=== PATIENT | female | born 1940 | race Caucasian/White ===

== ENCOUNTER → 2020-02-29 10:18 | Outpatient (CLI) | payer MEDICARE, BC, SELFPAY ==
[2020-02-29 13:05] LABS: Add Manual Diff / Slide Review NO; Basophils Absolute Auto 100 /uL (0-100); Basophils Percent Auto 1.1 % (0-2); Eosinophils Absolute Auto 100 /uL (0-450); Eosinophils Percent Auto 2.1 % (2-4); Hematocrit 45.5 % (36-46); Lymphocytes Absolute Auto 1700 /uL (1100-4500); Lymphocytes Percent Auto 28.9 % (25-40); Mean Corpuscular HGB Conc 33.1 % (30-36); Mean Corpuscular Hemoglobin 30.2 PG (26-34); Mean Corpuscular Volume 91.3 fL (80-100); Monocytes Absolute Auto 400 /uL (0-900); Monocytes Percent Auto 7.8 % (3-14); Neutrophils Absolute Auto 3400 /uL (1500-7000); Neutrophils Percent Auto 60.1 % (50-75); Platelet Count 240 X10^3/uL (150-400); Red Blood Cell Count 4.98 X10^6/uL (4.0-5.2); Red Cell Distribution Width 13.9 % (11.6-14.8); White Blood Cell Count 5.7 X10^3/uL (4.5-11.0)
[2020-02-29 13:27] LABS: Alanine Aminotransferase 16 IU/L (<35); Albumin 4.3 g/dL (3.5-5.0); Albumin Globulin Ratio 1.4 (1.0-2.8); Alkaline Phosphatase 82 U/L (38-126); Aspartate Aminotransferase 26 IU/L (14-36); BUN Creatinine Ratio 18.8 (6-22); Bilirubin Total 0.8 mg/dL (0.2-1.3); Blood Urea Nitrogen 16 mg/dL (7-17); Calcium 9.5 mg/dL (8.4-10.2); Carbon Dioxide 31 mmol/L (22-32); Chloride 105 mmol/L (98-107); Cholesterol 177 mg/dL (140-199); Estimated Glomerular Filt Rate > 60.0 mL/min (>60); Glucose 83 mg/dL (80-110); HDL Cholesterol 46 mg/dL (40-60); HEMOLYSIS < 15 (0-50); LDL Cholesterol Calculated 99 mg/dL (<100); Potassium 4.3 mmol/L (3.4-5.1); Sodium 141 mmol/L (137-145); Total Protein 7.3 g/dL (6.3-8.2); Triglycerides 161 mg/dL (35-150)
[2020-02-29 13:57] LABS: Thyroid Stimulating Hormone 2.55 uIU/mL (0.47-4.68)
== END ==
PROVIDERS: Family Provider Family Medicine; PCP Family Medicine; Referring Provider Family Medicine; Visit Provider Family Medicine
DX: M85.80 Other specified disorders of bone density and structure, unspecified site (principal); Z13.220 Encounter for screening for lipoid disorders; Z13.29 Encounter for screening for other suspected endocrine disorder; Z13.6 Encounter for screening for cardiovascular disorders
CPT/HCPCS: 36415; 80053; 80061; 84443; 85025

== ENCOUNTER → 2020-04-21 10:15 | Outpatient (CLI) | payer MEDICARE, BC, SELFPAY ==
--- NOTE | 2020-04-21 10:18 | DI.MG.S_ITS ---
BILATERAL DIGITAL SCREENING MAMMOGRAM 3D/2D WITH CAD: 04/21/2020 CLINICAL: Routine screening. Comparison is made to exams dated: 12/17/2014 mammogram - [facility], 09/15/2009 mammogram, and 02/20/2008 mammogram - [facility]. The tissue of both breasts is predominantly fatty. Current study was also evaluated with a Computer Aided Detection (CAD) system. No significant masses, calcifications, or other findings are seen in either breast. There has been no significant interval change. IMPRESSION: NEGATIVE There is no mammographic evidence of malignancy. A 1 year screening mammogram is recommended. This exam was interpreted at Station ID: [id number]. NOTE: For mammograms, a report in lay terms will be sent to the patient. Approximately 15% of breast malignancies will not be visualized mammographically. In the management of a palpable breast mass, a negative mammogram must not discourage biopsy of a clinically suspicious lesion. Electronically Signed By: Graciela laguerre/deandre:04/21/2020 11:45:31 letter sent: Normal Exam ACR BI-RADS Category 1: Negative [id number]
== END ==
PROVIDERS: Family Provider Family Medicine; PCP Family Medicine; Referring Provider Family Medicine; Visit Provider Family Medicine
DX: Z12.31 Encounter for screening mammogram for malignant neoplasm of breast (principal)
CPT/HCPCS: 77063; 77067

== ENCOUNTER → 2020-04-26 14:48 | Outpatient (CLI) | payer MEDICARE, BC, SELFPAY | PROVIDERS: Family Provider Family Medicine; PCP Family Medicine; Referring Provider Family Medicine; Visit Provider Family Medicine | DX: M81.0 Age-related osteoporosis without current pathological fracture (principal); Z78.0 Asymptomatic menopausal state; Z82.62 Family history of osteoporosis | CPT/HCPCS: 77080 ==

== ENCOUNTER → 2021-06-05 09:48 | Outpatient (CLI) | payer MEDICARE, BC, SELFPAY ==
--- NOTE | 2021-06-05 09:50 | DI.RAD.S_ITS ---
PROCEDURE: XR DEXA AXIAL SKELETON INDICATIONS: osteopenia COMPARISON: [facility], CR, XR DEXA AXIAL SKELETON, 04/26/2020, 15:06. FINDINGS: This blank DEXA report has been sent in error by the PACS system. The correct and complete report will be forthcoming in 1-2 days. Thank you for your patience and understanding. Dictated by: Colleen Paul MD, PhD on 06/05/2021 at 16:25 Approved by: Colleen Paul MD, PhD on 06/05/2021 at 16:25
== END ==
PROVIDERS: Family Provider Family Medicine; PCP Internal Medicine; Referring Provider Internal Medicine; Visit Provider Internal Medicine
DX: M81.0 Age-related osteoporosis without current pathological fracture (principal); Z78.0 Asymptomatic menopausal state; Z82.62 Family history of osteoporosis
CPT/HCPCS: 77080

== ENCOUNTER → 2021-09-29 11:23 | Outpatient (CLI) | payer MEDICARE, BC, SELFPAY ==
[2021-09-29 12:16] LABS: Alanine Aminotransferase 18 IU/L (<35); Albumin 4.5 g/dL (3.5-5.0); Albumin Globulin Ratio 1.5 (1.0-2.8); Alkaline Phosphatase 78 U/L (38-126); Aspartate Aminotransferase 27 IU/L (14-36); BUN Creatinine Ratio 18.6 (6-22); Bilirubin Total 0.8 mg/dL (0.2-1.3); Blood Urea Nitrogen 16 mg/dL (7-17); Calcium 9.3 mg/dL (8.4-10.2); Carbon Dioxide 31 mmol/L (22-32); Chloride 104 mmol/L (98-107); Cholesterol 191 mg/dL (140-199); Estimated Glomerular Filt Rate > 60 mL/min (>60); Glucose 97 mg/dL (80-110); HDL Cholesterol 52 mg/dL (40-60); HEMOLYSIS < 15 (0-50); LDL Cholesterol Calculated 106 mg/dL (<100); Potassium 4.3 mmol/L (3.4-5.1); Sodium 140 mmol/L (137-145); Total Protein 7.5 g/dL (6.3-8.2); Triglycerides 164 mg/dL (35-150)
== END ==
PROVIDERS: Family Provider Family Medicine; PCP Internal Medicine; Referring Provider Internal Medicine; Visit Provider Internal Medicine
DX: Z13.6 Encounter for screening for cardiovascular disorders (principal); Z13.220 Encounter for screening for lipoid disorders
CPT/HCPCS: 36415; 80053; 80061

== ENCOUNTER → 2022-06-12 12:02 | Outpatient (CLI) | payer MEDICARE, BC, SELFPAY ==
[2022-06-12 12:56] LABS: Add Manual Diff / Slide Review NO; Basophils Absolute Auto 100 /uL (0-100); Eosinophils Absolute Auto 100 /uL (0-450); Eosinophils Percent Auto 1.4 % (2-4); Hematocrit 45.1 % (36-46); Hemoglobin 15.1 g/dL (12.0-16.0); Lymphocytes Absolute Auto 1500 /uL (1100-4500); Mean Corpuscular HGB Conc 33.4 % (30-36); Mean Corpuscular Hemoglobin 30.3 PG (26-34); Mean Corpuscular Volume 90.7 fL (80-100); Monocytes Absolute Auto 500 /uL (0-900); Monocytes Percent Auto 7.8 % (3-14); Neutrophils Absolute Auto 4400 /uL (1500-7000); Neutrophils Percent Auto 66.8 % (50-75); Platelet Count 224 X10^3/uL (150-400); Red Blood Cell Count 4.97 X10^6/uL (4.0-5.2); Red Cell Distribution Width 14.1 % (11.6-14.8); White Blood Cell Count 6.6 X10^3/uL (4.5-11.0)
[2022-06-12 13:37] LABS: Alanine Aminotransferase 20 IU/L (<35); Albumin 4.5 g/dL (3.5-5.0); Albumin Globulin Ratio 1.4 (1.0-2.8); Alkaline Phosphatase 76 U/L (38-126); Aspartate Aminotransferase 25 IU/L (14-36); Bilirubin Total 0.8 mg/dL (0.2-1.3); Blood Urea Nitrogen 24 mg/dL (7-17); Calcium 9.4 mg/dL (8.4-10.2); Carbon Dioxide 29 mmol/L (22-32); Chloride 100 mmol/L (98-107); Estimated Glomerular Filt Rate > 60 mL/min (>60); Globulin 3.2 g/dL (1.7-4.1); Glucose 80 mg/dL (80-110); HEMOLYSIS < 15 (0-50); Sodium 139 mmol/L (137-145); Total Protein 7.7 g/dL (6.3-8.2)
[2022-06-12 13:47] LABS: Free T4, Direct Thyroxine 1.17 ng/dL (0.78-2.19)
[2022-06-12 14:01] LABS: Thyroid Stimulating Hormone 1.87 uIU/mL (0.47-4.68)
== END ==
PROVIDERS: Family Provider Internal Medicine; PCP Internal Medicine; Referring Provider Internal Medicine; Visit Provider Internal Medicine
DX: L65.9 Nonscarring hair loss, unspecified (principal); R53.83 Other fatigue; C32.9 Malignant neoplasm of larynx, unspecified
CPT/HCPCS: 36415; 80053; 84439; 84443; 85025

== ENCOUNTER 2022-08-02 10:30 | Outpatient (RCR) | payer MEDICARE, BC, SELFPAY ==
--- NOTE | 2022-04-25 12:00 | ST.OPIE ---
Visit Care Team Role Provider Type Too Burgos MD Family Provider Physician Primary Care Provider Specialty: Internal Medicine Address: [address] [place] [address], [address], [place], [address] Email: [email or web address] Lobo Ramirez MD Attending Provider Non-Staff Referring Provider Specialty: Ear, Nose, Throat Address: [address] [place] [address], [id number] Email: Speech-Language Pathology Initial Evaluation CLINICIAN ONCOLOGY Voice Resonance Evaluation Start: 04/25/22 11:19 Freq: Status: Active Protocol: Document 04/25/22 11:19 LNK (Rec: 04/25/22 12:00 LNK [id number]) Voice and Resonance Assessment Session Time Visit Start Time 09:30 Visit Stop Time 10:30 Total Visit Minutes 60 Visit Information Visit Number 1 Plan of Care Dates 04/25/22-07/24/22 Next Note Type Next Note Type Treatment Note Referral Referring Physician Dr Ramirez, ENT Reason for Referral dysphonia Setting Setting Outpatient Care Patient History Patient History Pt was seen for a voice evaluation 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 She subsequently underwent radiation treatment (28 treatments) from December [address] Ramirez recently evaluated the pt's vocal folds following her treatment. He observed to left vocal fold to have scar tissue, moderately decreased mucosal wave and moderately to severely decreased glottic closure. Pt presented with a significantly breathy/aphonic vocal quality with some phonation. She is seeking vocal therapy to get her voice back to normal and be able to sing again. Educational Status Education Level College Oral Motor Assessment Source: [employer] ([employer]). Oral-Motor Eval Completed No Oral-Motor Assessment Informal observation indicated structures and function to be WNL Subjective Subjective Pt is a pleasant woman who was well prepared with information related to her surgery - Laryngeal Performance Maximum Phonation Time MPT Norms: Women (15-25) Men (25-35) Loudness (50-60 dB); Speaking Rate: Oral Reading of Sentences (190 Words Per Minute); Oral Reading of Paragraphs (160-170 WPM); Speaking Rate in Conversation (150-250 WPM) Maximum Phonation Time 11.5 Maximum Phonation Time Reduced Jitter/Shimmer Norms: Jitter (Less than or equal to 1.040% - Frequency) Norms: Shimmer (Less than or equal to 3.810% - Amplitude) Jitter 7.79 Shimmer 13.12 Pitch [place] Pitch [place] Pitch Breaks,Reduced Range, Cessation of Voicing Muscle Tension Assessment Muscle Tension Assessment Neck,Shoulders Muscle Tension Assessment Comments Pt noted that her neck was stiffer in the front re: radiation tx Tongue Base Tension Tongue Base Tension w/ Voicing No Tongue Base Tension at Rest No Breath Support Breath Support At Rest Abdominal Breath Support Sustained Phonation Abdominal Breath Support Conversation Abdominal Breath Support Conversation Comment Increased respiratory rate re: breathiness Speaks on Room Air Yes Postural Alignment Stance Balanced Voice Pitch Range Norms: Women (100-300 Hz) Men (70-250 Hz) Fundamental Frequency Norms: Women (Mean: 225 Hz; Range: 155-334 Hz) Men ( Mean: 128 Hz; Range: 85-196 Hz) Voice Pitch Normal Voice Loudness Moderately Soft/Quiet Voice Phonatory-based Quality Breathy Fundamental Frequency 191 Hz Paradoxical Vocal Fold Movement No Indications Resonance Nasal Resonance Normal Oral Resonance Normal Other Observations Inadequate Breath Support Therapeutic Techniques Other Tactics Vocal adduction exercises Follow exercises from oncologist for maintaining/ increasing ROM and flexibility of head and neck Vocal glides Findings Findings Moderate-Severe Impairment Voice/Resonance Assessment Assessment 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 Vocal adduction exercises as well as pitch change exercises will be utizlized to increase vocal fold strength for vocal adduction and vocal fold flexibility. Myofascial release therapy is recommended , initially with physical therapy, and continued/ maintained by pt. Prognosis Rehabilitation Potential Good - Recommendations Treatment Recommended Yes Treatment Frequency/Duration weekly Therapy Recommendations Myofascial release therapy for head/neck area to reduce/ maintain soft tissue stiffness re: radiation therapy. Recommend PT referral Short Term Goals 1. Pt education of the anatomy/physiology of the laryngeal and neck structures re; pt's surgery and radiation side effects 2. Pt will understand and perform laryngeal exercises as prescribed by ST daily 3. Pt will be referred to PT for myofascial release therapy of head and neck areas affected by Radiation treatments CLINICIAN ONCOLOGY Follow Up weekly as indicated Patient/Caregiver Education Patient/Family Education Described results of evaluation,Patient Understanding,Patient Demonstration,Patient Needs More Info
--- NOTE | 2022-04-25 12:02 | ST.OPPOC ---
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 She subsequently underwent radiation treatment (28 treatments) from December [address] Ramirez recently evaluated the pt's vocal folds following her treatment. He observed to left vocal fold to have scar tissue, moderately decreased mucosal wave and moderately to severely decreased glottic closure. Pt presented with a significantly breathy/aphonic vocal quality with some phonation. She is seeking vocal therapy to get her voice back to normal and be able to sing again. Assessment: Pt presents with moderate to severe dysphaonia characterized by significant breathy vocal quality, reduced loudness and increased respiratory effort when speaking. Vocal adduction exercises as well as pitch change exercises will be utilized to increase vocal fold strength for vocal adduction and vocal fold flexibility. Myofascial release therapy is recommended, initially with physical therapy, and continued/maintained by pt. Recommendations 1. Pt education of the anatomy/physiology of the laryngeal and neck structures re; pt's surgery and radiation side effects 2. Pt will understand and perform laryngeal exercises as prescribed by ST daily 3. Pt will be referred to PT for myofascial release therapy of head and nck areas affected by Radiation treatments Myofascial release therapy for head/neck area to reduce/maintain soft tissue stiffness re: radiation therapy. Recommend PT referral Electronically Signed by: TASHI Sorto 04/25/22 1202 If you are in agreement with this Plan of Care, please return a signed and dated copy. I have reviewed this Plan of Care and certify that the skilled therapy services above are required to meet the patient?s needs. Physician Signature Date Printed Name and Credentials Clinical Instructor Signature Printed Name and Credentials
--- NOTE | 2022-05-03 15:59 | ST.OPTN ---
Visit Care Team Role Provider Type Too Burgos MD Family Provider Physician Primary Care Provider Address: [address] [place] [address], [address], [place], [address] Lobo Ramirez MD Attending Provider Non-Staff Referring Provider Address: [facility] Chloe [address], [address] WAREHOUSE SHIPPING SUPERVISOR Treatment Note WAREHOUSE SHIPPING SUPERVISOR Treatment Note Start: 05/03/22 13:25 Freq: Status: Active Protocol: Document 05/03/22 13:26 LNK (Rec: 05/03/22 13:31 LNK [id number]) Speech Pathology Treatment Note Session Time Visit Start Time 13:30 Visit Stop Time 14:15 Total Visit Minutes 45 Setting Treatment Setting Outpatient Care Visit Type Note Type Treatment Note Next Note Type Next Note Type Treatment Note General Information Patient History Pt was seen for a voice evaluation 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 She subsequently underwent radiation treatment (28 treatments) from December [address] Ramirez recently evaluated the pt's vocal folds following her treatment. He observed to left vocal fold to have scar tissue, moderately decreased mucosal wave and moderately to severely decreased glottic closure. Pt presented with a significantly breathy/aphonic vocal quality with some phonation. She is seeking vocal therapy to get her voice back to normal and be able to sing again. Subjective Identification Type Name,Date of Observations/Patient Presentation Pt presents with moderate to severe dysphaonia characterized by significant breathy vocal quality, reduced loudness and increased respiratory effort when speaking. Vocal adduction exercises as well as pitch change exercises will be utilized to increase vocal fold strength for vocal adduction and vocal fold flexibility. Myofacial release therapy is recommended , initially with physical therapy, and continued/ maintained by pt. Chief Complaint(s) Voice Patient Knowledge/Awareness of WAREHOUSE SHIPPING SUPERVISOR Role Excellent in Treatment Parent/Caretake Knowledge/Awareness of Excellent WAREHOUSE SHIPPING SUPERVISOR Role in Treatment Objective Short Term Goals 1. Pt education of the anatomy/physiology of the laryngeal and neck structures re; pt's surgery and radiation side effects 2. Pt will understand and perform laryngeal exercises as prescribed by ST daily 3. Pt will be referred to PT for myofascial release therapy of head and nck areas affected by Radiation treatments Assisted Goals Pt's vocal quality will improve to [facility] Treatment Activities Vocal exercises described and practiced included: vocal adduction, straw phonation and scales production. All exercises were demonstrated, explained for the pt who imitated and practiced them to satisfaction. Pt noted improved vocal quality with scales and straw phonation. Written explanations of all HEP exercises was provided to the pt. She will be seen every 2 weeks in order to allow for practice between sessions. Assessment Patient Response to Treatment Excellent Rehab Potential Excellent Impairments Identified Voice Reviewed with Patient Goals,Progress Being Made,Home Exercise Program Patient/Caregiver Understanding Excellent Plan Amount of Therapy Recommended 3-4 Months Frequency of Treatment Once a Week Length of Session 45 Minutes Therapeutic Contents Voice Training Provided Patient/Caregiver Instruction Home Exercise Program,Plan of Care Therapy Recommendations Recommended Exercises/ Activities
--- NOTE | 2022-05-17 11:22 | ST.OPTN ---
Visit Care Team Role Provider Type Too Burgos MD Family Provider Physician Primary Care Provider Address: [address] [place] [address], [address], [place], [address] Lobo Ramirez MD Attending Provider Non-Staff Referring Provider Address: [facility] Chloe Wangvirgil [address], [address] RUG SHAMPOOER Treatment Note RUG SHAMPOOER Treatment Note Start: 05/03/22 13:25 Freq: Status: Active Protocol: Document 05/17/22 10:30 LNK (Rec: 05/17/22 11:22 LNK [id number]) Speech Pathology Treatment Note Session Time Visit Start Time 10:30 Visit Stop Time 11:00 Total Visit Minutes 30 Visit Information Visit Number 3 Plan of Care Dates 04/25/22-07/24/22 Setting Treatment Setting Outpatient Care Visit Type Note Type Treatment Note Next Note Type Next Note Type Treatment Note General Information Patient History Pt was seen for a voice evaluation 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 She subsequently underwent radiation treatment (28 treatments) from December [address] Ramirez recently evaluated the pt's vocal folds following her treatment. He observed to left vocal fold to have scar tissue, moderately decreased mucosal wave and moderately to severely decreased glottic closure. Pt presented with a significantly breathy/aphonic vocal quality with some phonation. She is seeking vocal therapy to get her voice back to normal and be able to sing again. 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 Vocal adduction exercises as well as pitch change exercises will be utilized to increase vocal fold strength for vocal adduction and vocal fold flexibility. Myofacial release therapy is recommended , initially with physical therapy, and continued/ maintained by pt. Chief Complaint(s) Voice Patient Knowledge/Awareness of RUG SHAMPOOER Role Excellent in Treatment Parent/Caretake Knowledge/Awareness of Excellent RUG SHAMPOOER Role in Treatment Objective Short Term Goals 1. Pt education of the anatomy/physiology of the laryngealand neck structures re; pt's surgery and radiation side effects 2. Pt will understand and perform laryngeal exercises as prescribed by ST daily 3. Pt will be referred to PT for myofascial release therapy of head and neck areas affected by Radiation treatments Operations Intern Goals Pt's vocal quality will improve to [facility] Treatment Activities Vocal exercises reviewed and practiced included: vocal adduction, straw phonation and scales production. Pt reports that she has been singing at home. Encouraged singing without effort to increase pitch variation and flexibility of the VF. Additionally, pt has increased vocal adduction to 15 sec per rep. pt feel her voice is starting to sound better. All exercises were practiced to RUG SHAMPOOER / patient satisfaction. Pt noted improved vocal quality with scales and straw phonation. Written explanations of all HEP exercises was provided to the pt. She will be seen every 2 weeks in order to allow for practice between sessions. Assessment Patient Response to Treatment Excellent Rehab Potential Excellent Impairments Identified Voice Assessment of Improvement Pt has been dedicated to voice improvement exercised. Encouraged her to get PT referral for myofascial release therapy for neck/ chest area. Reviewed with Patient Goals,Progress Being Made,Home Exercise Program Patient/Caregiver Understanding Excellent Plan Amount of Therapy Recommended 3-4 Months Frequency of Treatment Once a Week Length of Session 45 Minutes Therapeutic Contents Voice Training Provided Patient/Caregiver Instruction Home Exercise Program,Plan of Care Therapy Recommendations Recommended Exercises/ Activities
--- NOTE | 2022-05-31 14:57 | ST.OPTN ---
Visit Care Team Role Provider Type Too Burgos MD Family Provider Physician Primary Care Provider Address: [address] [place] [address], [address], [place], [address] Lobo Ramirez MD Attending Provider Non-Staff Referring Provider Address: [facility] Chloe Wangvirgil [address], [address] [employer]ERRY FARM SUPERVISOR Treatment Note CR[employer]ERRY FARM SUPERVISOR Treatment Note Start: 05/03/22 13:25 Freq: Status: Active Protocol: Document 05/31/22 14:50 LNK (Rec: 05/31/22 14:57 LNK [id number]) Speech Pathology Treatment Note Session Time Visit Start Time 10:30 Visit Stop Time 11:00 Total Visit Minutes 45 Visit Information Visit Number 4 Plan of Care Dates 04/25/22-07/24/22 Setting Treatment Setting Outpatient Care Visit Type Note Type Treatment Note Next Note Type Next Note Type Treatment Note General Information Patient History Pt was seen for a voice evaluation 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 She subsequently underwent radiation treatment (28 treatments) from December [address] Ramirez recently evaluated the pt's vocal folds following her treatment. He observed to left vocal fold to have scar tissue, moderately decreased mucosal wave and moderately to severely decreased glottic closure. Pt presented with a significantly breathy/aphonic vocal quality with some phonation. She is seeking vocal therapy to get her voice back to normal and be able to sing again. 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 Vocal adduction exercises as well as pitch change exercises will be utilized to increase vocal fold strength for vocal adduction and vocal fold flexibility. Myofacial release therapy is recommended , initially with physical therapy, and continued/ maintained by pt. Chief Complaint(s) Voice Patient Knowledge/Awareness of CR[employer] FARM SUPERVISOR Role Excellent in Treatment Parent/Caretake Knowledge/Awareness of Excellent CR[employer] FARM SUPERVISOR Role in Treatment Objective Short Term Goals 1. Pt education of the anatomy/physiology of the laryngeal and neck structures re; pt's surgery and radiation side effects 2. Pt will understand and perform laryngeal exercises as prescribed by ST daily 3. Pt will be referred to PT for myofascial release therapy of head and neck areas affected by Radiation treatments Furnace Caretaker Goals Pt's vocal quality will improve to [facility] Treatment Activities Vocal exercises reviewed and practiced: vocal adduction, and scales production. Pt reported that she did not feel that straw phonation was effective so we eliminated that exercise. Pt has been singing at home. Encouraged singing without effort to increase pitch variation and flexibility of the VF. Additionally, pt has increased vocal adduction to 15 sec per rep. Additionally, pt has increased vocal Pt feel her voice is starting to sound better. All exercise were practiced to CR[employer] FARM SUPERVISOR/ patient satisfaction. Written explanations of all HEP exercises was provided to the pt. She will be seen every 2 weeks in order to allow for practice between sessions. Assessment Patient Response to Treatment Excellent Rehab Potential Excellent Impairments Identified Voice Assessment of Improvement Pt reported that she did not feel that straw phonation was effective so we eliminated that exercise. Pt has been singing at home. Encouraged singing without effort to increase pitch variation and flexibility of the VF. Reviewed with Patient Goals,Progress Being Made,Home Exercise Program Patient/Caregiver Understanding Excellent Plan Amount of Therapy Recommended 3-4 Months Frequency of Treatment Once a Week Length of Session 45 Minutes Therapeutic Contents Voice Training Provided Patient/Caregiver Instruction Home Exercise Program,Plan of Care Therapy Recommendations Recommended Exercises/ Activities
--- NOTE | 2022-06-21 17:06 | ST.OPTN ---
Visit Care Team Role Provider Type Too Burgos MD Family Provider Physician Primary Care Provider Address: [address] [place] [address], [address], [place], [address] Lobo Ramirez MD Attending Provider Non-Staff Referring Provider Address: [facility] Chloe Wangvirgil [address], [address] MANAGER FINANCIAL PLANNING Treatment Note MANAGER FINANCIAL PLANNING Treatment Note Start: 05/03/22 13:25 Freq: Status: Active Protocol: Document 06/21/22 17:01 SARAN (Rec: 06/21/22 17:06 JAYNAK [id number]) Speech Pathology Treatment Note Session Time Visit Start Time 10:30 Visit Stop Time 11:00 Total Visit Minutes 45 Visit Information Visit Number 5 Plan of Care Dates 04/25/22-07/24/22 Setting Treatment Setting Outpatient Care Visit Type Note Type Treatment Note Next Note Type Next Note Type Treatment Note General Information Patient History Pt was seen for a voice evaluation 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 She subsequently underwent radiation treatment (28 treatments) from December [address] Ramirez recently evaluated the pt's vocal folds following her treatment. He observed to left vocal fold to have scar tissue, moderately decreased mucosal wave and moderately to severely decreased glottic closure. Pt presented with a significantly breathy/aphonic vocal quality with some phonation. She is seeking vocal therapy to get her voice back to normal and be able to sing again. 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 Vocal adduction exercises as well as pitch change exercises will be utilized to increase vocal fold strength for vocal adduction and vocal fold flexibility. Myofacial release therapy is recommended , initially with physical therapy, and continued/ maintined by pt. Chief Complaint(s) Voice Patient Knowledge/Awareness of MANAGER FINANCIAL PLANNING Role Excellent in Treatment Parent/Caretake Knowledge/Awareness of Excellent MANAGER FINANCIAL PLANNING Role in Treatment Objective Short Term Goals 1. Pt education of the anatomy/physiology of the laryngealand neck structures re; pt's surgery and radiation side effects 2. Pt will understand and perform laryngeal ecercises as prescribed by ST daily 3. Pt will be referred to PT for myofascial release therapy of head and nck areas affected by Radiation treatments Detention Goals Pt's vocal quality will improve to [facility] Treatment Activities Vocal exercises reviewed and practiced: vocal adduction, and scales production. Pt reported that she has been attending the local [employer] program designed to aid vocally challenges pts to participate in songs and vocal exercises. She has enjoyed the program. Pt continues to present with a hoarse vocal quality. Most of the session was providing pt education re: laryngeal musculature and the continuous churn buttermaker effects of radiation tx on the muscle and cartilage tissues. pt encouraged to continue vocal exercises as well as her physical head/neck exercises she has at home. Assessment Patient Response to Treatment Excellent Rehab Potential Excellent Impairments Identified Voice Reviewed with Patient Goals,Progress Being Made,Home Exercise Program Patient/Caregiver Understanding Excellent Plan Amount of Therapy Recommended 3-4 Months Frequency of Treatment Once a Week Length of Session 45 Minutes Therapeutic Contents Voice Training Provided Patient/Caregiver Instruction Home Exercise Program,Plan of Care Therapy Recommendations Recommended Exercises/ Activities
--- NOTE | 2022-07-12 16:50 | ST.OPTN ---
Visit Care Team Role Provider Type Too Burgos MD Family Provider Physician Primary Care Provider Address: [address] [place] [address], [address], [place], [address] Lobo Ramirez MD Attending Provider Non-Staff Referring Provider Address: [facility] Chloe Woody [address], [address] FEED MILL TENDER Treatment Note FEED MILL TENDER Treatment Note Start: 05/03/22 13:25 Freq: Status: Active Protocol: Document 07/12/22 16:36 (Rec: 07/12/22 16:50 [id number]) Speech Pathology Treatment Note Session Time Visit Start Time 10:30 Visit Stop Time 11:15 Total Visit Minutes 45 Visit Information Visit Number 6 Plan of Care Dates 04/25/22-07/24/22 Setting Treatment Setting Outpatient Care Visit Type Note Type Treatment Note Next Note Type Next Note Type Treatment Note General Information Patient History Pt was seen for a voice evaluation 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 She subsequently underwent radiation treatment (28 treatments) from December [address] Ramirez recently evaluated the pt's vocal folds following her treatment. He observed to left vocal fold to have scar tissue, moderately decreased mucosal wave and moderately to severely decreased glottic closure. Pt presented with a significantly breathy/aphonic vocal quality with some phonation. She is seeking vocal therapy to get her voice back to normal and be able to sing again. Subjective Identification Type Name,Date of Observations/Patient Presentation Pt presents with moderate dysphonia characterized by moderate breathy vocal quality , reduced loundess and some respiratory effort when speaking. Vocal adduction exercises as well as pitch change exercises will be utizlized to increase vocal fold strength for vocal adduction and vocal fold flexibility. Myofacial release therapy is recommended , initially with physical therapy, and continued/ maintined by pt. Chief Complaint(s) Voice Patient Knowledge/Awareness of FEED MILL TENDER Role Excellent in Treatment Parent/Caretake Knowledge/Awareness of Excellent FEED MILL TENDER Role in Treatment Objective Short Term Goals 1. Pt education of the anatomy/physiology of the laryngealand neck structures re; pt's surgery and radiation side effects 2. Pt will understand and perform laryngeal ecercises as prescribed by ST daily 3. Pt will be referred to PT for myofascial release therapy of head and nck areas affected by Radiation treatments Matting Press Tender Goals Pt's vocal quality will improve to [facility] Treatment Activities Vocal exercises reviewed and practiced: vocal adduction, and scales production. Pt reported that she has been attending the local [employer] program designed to aid vocally challenges pts to participate in songs and vocal exercises. She has enjoyed the ptogram. Pt continues to present with [facility] vocal quality. Most of the session was providing pt education re: laryngeal musculature and the terminal gauger effects of radiation tx on the muscle and cartilage tissues. pt encouraged to continue vocal exercises as well as her physical head/neck exercises she has at home. Assessment Patient Response to Treatment Excellent Rehab Potential Excellent Impairments Identified Voice Assessment of Improvement Pt reported attending myofacial release therapy today for the first time where she was presented with neck-stretching exercises. She reported benefitting from manual myofacial release. Pt also reported consistent home practice of vocal exercises from [facility] which included pitch glides, arpeggios, and staccato voice exercises. Pt demonstrated knowledge of anatomical and physiological of vocal structures, breathing , and their effects on voice. Pt demonstrated sustained vowels /a/, /i/, /u/, and /o/, with good pitch maintenance and mild dysphonia characterized by hoarseness and breathiness. Pt reported an increase in vocal quality when supine with her neck turned to either side. Education and practice of warm -up stretches (e.g., shoulder relaxation, jaw stretches, and tongue movements) were introduced. Pt reported that stretching practice from her myofacial therapist were sufficient for now. Pt was also introduced to vocal function exercises for the purposes of increased coordination between breathing and projection. Exercises included sustained vowel /i/, pitch glides to stretch and contract vocal folds, and alternating sustained pitch. Pt reported high similarities between these exercises and stretches with education and practice received at [facility] . Pt reported appreciating the feedback from clinicians that she is doing the right things. Pt chose to maintain [facility] and the stretching program from the myofacial therapist to decrease cognitive and management load and effort. Pt declined SOVT practice due to her busy schedule and self-perceived lack of benefit. Reviewed with Patient Goals,Progress Being Made,Home Exercise Program Patient/Caregiver Understanding Excellent Plan Amount of Therapy Recommended 3-4 Months Frequency of Treatment Once a Week Length of Session 45 Minutes Therapeutic Contents Voice Training Provided Patient/Caregiver Instruction Home Exercise Program,Plan of Care Therapy Recommendations Recommended Exercises/ Activities
--- NOTE | 2022-08-02 11:43 | ST.OPTN ---
Visit Care Team Role Provider Type Too Burgos MD Family Provider Physician Primary Care Provider Address: [address] [place] [address], [address], [address] Lobo Ramirez MD Attending Provider Non-Staff Referring Provider Address: [facility] [place] [address], [address] STRETCHING MACHINE OPERATOR Treatment Note STRETCHING MACHINE OPERATOR Clinical Instructor Line Start: 07/12/22 16:36 Freq: Status: Active Protocol: Document 07/12/22 19:11 LNK (Rec: 07/12/22 19:11 LNK [id number]) Clinical Instructor Signature Clinical Instructor Clinical Instructor Yes STRETCHING MACHINE OPERATOR Treatment Note Start: 05/03/22 13:25 Freq: Status: Active Protocol: Document 08/02/22 11:24 LNK (Rec: 08/02/22 11:42 [facility] [id number]) Speech Pathology Treatment Note Session Time Visit Start Time 10:30 Visit Stop Time 11:15 Total Visit Minutes 45 Visit Information Visit Number 6 Plan of Care Dates 04/25/22-07/24/22 Setting Treatment Setting Outpatient Care Visit Type Note Type Re-Evaluation Next Note Type Next Note Type Treatment Note General Information Patient History Pt was initially seen for a voice evaluation 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 She subsequently underwent radiation treatment (28 treatments) from December [address] Ramirez evaluated the pt's vocal folds following her treatment. He observed the left vocal fold to have scar tissue, moderately decreased mucosal wave and moderately to severely decreased glottic closure. Pt presented with a significantly breathy/aphonic vocal quality with some phonation. She is seeking vocal therapy to get her voice back to normal and be able to sing again. Subjective Identification Type Name,Date of Observations/Patient Presentation Pt initially presented with moderate dysphonia characterized by moderate breathy vocal quality, reduced loundess and some respiratory effort when speaking. Vocal adduction exercises as well as pitch change exercises were recommended be utilized to increase vocal fold strength for vocal adduction and vocal fold flexibility. Myofacial release therapy is recommended , initially with physical therapy, and continued/ maintained by pt. Chief Complaint(s) Voice Patient Knowledge/Awareness of STRETCHING MACHINE OPERATOR Role Excellent in Treatment Parent/Caretake Knowledge/Awareness of Excellent STRETCHING MACHINE OPERATOR Role in Treatment Objective Short Term Goals 1. Pt education of the anatomy/physiology of the laryngeal and neck structures re; pt's surgery and radiation side effects GOAL MET 2. Pt will understand and perform laryngeal exercises as prescribed by ST daily GOAL MET 3. Pt will be referred to PT for myofascial release therapy of head and nck areas affected by Radiation treatments GOAL MET Roofing Contractor Goals Pt's vocal quality will improve to [facility] Treatment Activities Reviewed with pt vocal exercises and activities she has been partaking in since last session. met Assessment Patient Response to Treatment Excellent Rehab Potential Excellent Impairments Identified Voice Assessment of Improvement Pt is currently receiving myofacial release therapy through PT and reports that by the end of her PT sessions, her voice improves to normal . She is also participating in [employer] a therapeutic singing group therapy program designed for adults with communication challenges. She enjoys [employer] very much and attends weekly. Finally, she is incorporating vocal adduction exercises 3-4x/week to address vocal fold weakness. All current goals are met at this time. Pt is scheduled to see her oncologist for follow up soon. I recommended that pt follow up with Dr. Rodriguez for stroboscopy and reevaluation of vocal fold function. Recommended that, if indicated the use of VF filler with anterior gap, may aid in further reduction of ongoing breathy quality of pt's voice. Reviewed with Patient Goals,Progress Being Made,Home Exercise Program Patient/Caregiver Understanding Excellent Plan Amount of Therapy Recommended 1-2 Months Comment Need referral from Dr. Ramirez after new strob appt Frequency of Treatment Once a Week Length of Session 45 Minutes Additional Areas of Treatment Reassessmnet of VF function with Dr. Yan Provided Patient/Caregiver Instruction Home Exercise Program,Plan of Care Comment Need new St appt for f/u x1 Therapy Recommendations Recommended Exercises/ Activities Suggested Referral ENT
--- NOTE | 2022-08-02 11:47 | ST.OPRE ---
Visit Care Team Role Provider Type Too Burgos MD Family Provider Physician Primary Care Provider Specialty: Internal Medicine Address: [address] [place] [address], [address], [place], [address] Email: [email or web address] Lobo Ramirez MD Attending Provider Non-Staff Referring Provider Specialty: Ear, Nose, Throat Address: [address] [place] [address], [address] Email: Speech-Language Pathology Evaluation/Summary LIVESTOCK HANDLER Clinical Instructor Line Start: 07/12/22 16:36 Freq: Status: Active Protocol: Document 07/12/22 19:11 LNK (Rec: 07/12/22 19:11 LNK [id number]) Clinical Instructor Signature Clinical Instructor Clinical Instructor Yes LIVESTOCK HANDLER Treatment Note Start: 05/03/22 13:25 Freq: Status: Active Protocol: Document 08/02/22 11:24 LNK (Rec: 08/02/22 11:42 LNK [id number]) Speech Pathology Treatment Note Session Time Visit Start Time 10:30 Visit Stop Time 11:15 Total Visit Minutes 45 Visit Information Visit Number 6 Plan of Care Dates 07/24/22- 09/23/22 Setting Treatment Setting Outpatient Care Visit Type Note Type Re-Evaluation Next Note Type Next Note Type Treatment Note General Information Patient History Pt was initially seen for a voice evaluation 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 She subsequently underwent radiation treatment (28 treatments) from December [address] Ramirez evaluated the pt's vocal folds following her treatment. He observed the left vocal fold to have scar tissue, moderately decreased mucosal wave and moderately to severely decreased glottic closure. Pt presented with a significantly breathy/aphonic vocal quality with some phonation. She is seeking vocal therapy to get her voice back to normal and be able to sing again. Subjective Identification Type Name,Date of Observations/Patient Presentation Pt initially presented with moderate dysphonia characterized by moderate breathy vocal quality, reduced loundess and some respiratory effort when speaking. Vocal adduction exercises as well as pitch change exercises were recommended be utilized to increase vocal fold strength for vocal adduction and vocal fold flexibility. Myofacial release therapy is recommended , initially with physical therapy, and continued/ maintined by pt. Chief Complaint(s) Voice Patient Knowledge/Awareness of LIVESTOCK HANDLER Role Excellent in Treatment Parent/Caretake Knowledge/Awareness of Excellent LIVESTOCK HANDLER Role in Treatment Objective Short Term Goals 1. Pt education of the anatomy/physiology of the laryngealand neck structures re; pt's surgery and radiation side effects GOAL MET 2. Pt will understand and perform laryngeal ecercises as prescribed by ST daily GOAL MET 3. Pt will be referred to PT for myofascial release therapy of head and nck areas affected by Radiation treatments GOAL MET Modeling Teacher Goals Pt's vocal quality will improve to [facility] Treatment Activities Reviewed with pt vocal exercises and activites she has been partaking in since last session. met Assessment Patient Response to Treatment Excellent Rehab Potential Excellent Impairments Identified Voice Assessment of Improvement Pt is currently receiving myofacial release therapy through PT and reports that by the end of her PT sessions, her voice improves to normal . She isalsp participating in [employer] a therapeutic singing group therpy program designed for adults with communication challenges. She enjoyes [employer] very much and attends weekly. Finally, she is incorporating vocal adduction exercises 3-4x/week to address voccal fold weakness. All current goals are met at this time. Pt is scheduled to see her oncologist for follow up soon. I recemmended that pt follow up with Dr. Rodriguez for stroboscopy and reevaluation of vocal fold function. Recommendedtha, if indicated the use of VF filler with anterior gap, may aid in further reduction of ongoingbreathy quality of pt's voice. Reviewed with Patient Goals,Progress Being Made,Home Exercise Program Patient/Caregiver Understanding Excellent Plan Amount of Therapy Recommended 1-2 Months Comment Need referral from Dr. Ramirez after new strob appt Frequency of Treatment Once a Week Length of Session 45 Minutes Additional Areas of Treatment Reassessmnet of VF function with Dr. Yan Provided Patient/Caregiver Instruction Home Exercise Program,Plan of Care Comment Need new St appt for f/u x1 Therapy Recommendations Recommended Exercises/ Activities Suggested Referral ENT LIVESTOCK HANDLER Voice Resonance Evaluation Start: 04/25/22 11:19 Freq: Status: Active Protocol: Document 04/25/22 11:19 LNK (Rec: 04/25/22 12:00 [email or web address] [id number]) Voice and Resonance Assessment Session Time Visit Start Time 09:30 Visit Stop Time 10:30 Total Visit Minutes 60 Visit Information Visit Number 1 Plan of Care Dates 04/25/22-07/24/22 Next Note Type Next Note Type Treatment Note Referral Referring Physician Dr Ramirez, ENT Reason for Referral dysphonia Setting Setting Outpatient Care Patient History Patient History Pt was seen for a voice evaluation 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 She subsequently underwent radiation treatment (28 treatments) from December [address] Ramirez recently evaluated the pt's vocal folds following her treatment. He observed to left vocal fold to have scar tissue, moderately decreased mucosal wave and moderately to severely decreased glottic closure. Pt presented with a significantly breathy/aphonic vocal quality with some phonation. She is seeking vocal therapy to get her voice back to normal and be able to sing again. Educational Status Education Level College Oral Motor Assessment Source: [employer] ([employer]ODRIGUE[employer]). Oral-Motor Eval Completed No Oral-Motor Assessment Informal observation indicated structures and function to be WNL Subjective Subjective Pt is a pleasant woman who was well prepared with information related to her surgery - Laryngeal Performance Maximum Phonation Time MPT Norms: Women (15-25) Men (25-35) Loudness (50-60 dB); Speaking Rate: Oral Reading of Sentences (190 Words Per Minute); Oral Reading of Paragraphs (160-170 WPM); Speaking Rate in Conversation (150-250 WPM) Maximum Phonation Time 11.5 Maximum Phonation Time Reduced Jitter/Shimmer Norms: Jitter (Less than or equal to 1.040% - Frequency) Norms: Shimmer (Less than or equal to 3.810% - Amplitude) Jitter 7.79 Shimmer 13.12 Pitch [place] Pitch [place] Pitch Breaks,Reduced Range, Cessation of Voicing Muscle Tension Assessment Muscle Tension Assessment Neck,Shoulders Muscle Tension Assessment Comments Pt noted that her neck was stiffer in the front re: radiation tx Tongue Base Tension Tongue Base Tension w/ Voicing No Tongue Base Tension at Rest No Breath Support Breath Support At Rest Abdominal Breath Support Sustained Phonation Abdominal Breath Support Conversation Abdominal Breath Support Conversation Comment Increased respiratory rate re: breathiness Speaks on Room Air Yes Postural Alignment Stance Balanced Voice Pitch Range Norms: Women (100-300 Hz) Men (70-250 Hz) Fundamental Frequency Norms: Women (Mean: 225 Hz; Range: 155-334 Hz) Men ( Mean: 128 Hz; Range: 85-196 Hz) Voice Pitch Normal Voice Loudness Moderately Soft/Quiet Voice Phonatory-based Quality Breathy Fundamental Frequency 191 Hz Paradoxical Vocal Fold Movement No Indications Resonance Nasal Resonance Normal Oral Resonance Normal Other Observations Inadequate Breath Support Therapeutic Techniques Other Tactics Vocal adduction exercises Follow exercises from oncologist for maintaining/ increasing ROM and flexibility of head and neck Vocal glides Findings Findings Moderate-Severe Impairment Voice/Resonance Assessment Assessment 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 Vocal adduction exercises as well as pitch change exercises will be utilized to increase vocal fold strength for vocal adduction and vocal fold flexibility. Myofascial release therapy is recommended , initially with physical therapy, and continued/ maintained by pt. Prognosis Rehabilitation Potential Good - Recommendations Treatment Recommended Yes Treatment Frequency/Duration weekly Therapy Recommendations Myofascial release therapy for head/neck area to reduce/ maintain soft tissue stiffness re: radiation therapy. Recommend PT referral Short Term Goals 1. Pt education of the anatomy/physiology of the laryngeal and neck structures re; pt's surgery and radiation side effects 2. Pt will understand and perform laryngeal exercises as prescribed by ST daily 3. Pt will be referred to PT for myofascial release therapy of head and neck areas affected by Radiation treatments LIVESTOCK HANDLER Follow Up weekly as indicated Patient/Caregiver Education Patient/Family Education Described results of evaluation,Patient Understanding,Patient Demonstration,Patient Needs More Info
--- NOTE | 2022-08-02 11:51 | ST.OPRE ---
Visit Care Team Role Provider Type Too Burgos MD Family Provider Physician Primary Care Provider Specialty: Internal Medicine Address: [address] [place] [address], [address], [place], [address] Email: [email or web address] Lobo Ramirez MD Attending Provider Non-Staff Referring Provider Specialty: Ear, Nose, Throat Address: [address] [place] [address], [id number] Email: Speech-Language Pathology Evaluation/Summary WETLAND SCIENTIST Clinical Instructor Line Start: 07/12/22 16:36 Freq: Status: Active Protocol: Document 07/12/22 19:11 LNK (Rec: 07/12/22 19:11 LNK [id number]) Clinical Instructor Signature Clinical Instructor Clinical Instructor Yes [employer]ETLAND SCIENTIST Treatment Note Start: 05/03/22 13:25 Freq: Status: Active Protocol: Document 08/02/22 11:24 LNK (Rec: 08/02/22 11:42 LNK [id number]) Speech Pathology Treatment Note Session Time Visit Start Time 10:30 Visit Stop Time 11:15 Total Visit Minutes 45 Visit Information Visit Number 6 Plan of Care Dates 07/24/22- 09/23/22 Setting Treatment Setting Outpatient Care Visit Type Note Type Re-Evaluation Next Note Type Next Note Type Treatment Note General Information Patient History Pt was initially seen for a voice evaluation 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 She subsequently underwent radiation treatment (28 treatments) from December [address] Ramirez evaluated the pt's vocal folds following her treatment. He observed the left vocal fold to have scar tissue, moderately decreased mucosal wave and moderately to severely decreased glottic closure. Pt presented with a significantly breathy/aphonic vocal quality with some phonation. She is seeking vocal therapy to get her voice back to normal and be able to sing again. Subjective Identification Type Name,Date of Observations/Patient Presentation Pt initially presented with moderate dysphonia characterized by moderate breathy vocal quality, reduced loudness and some respiratory effort when speaking. Vocal adduction exercises as well as pitch change exercises were recommended be utilized to increase vocal fold strength for vocal adduction and vocal fold flexibility. Myofacial release therapy is recommended , initially with physical therapy, and continued/ maintained by pt. Chief Complaint(s) Voice Patient Knowledge/Awareness of WETLAND SCIENTIST Role Excellent in Treatment Parent/Caretake Knowledge/Awareness of Excellent WETLAND SCIENTIST Role in Treatment Objective Short Term Goals 1. Pt education of the anatomy/physiology of the laryngeal and neck structures re; pt's surgery and radiation side effects GOAL MET 2. Pt will understand and perform laryngeal exercises as prescribed by ST daily GOAL MET 3. Pt will be referred to PT for myofascial release therapy of head and nck areas affected by Radiation treatments GOAL MET [facility] Goals Pt's vocal quality will improve to [facility] Treatment Activities Reviewed with pt vocal exercises and activities she has been partaking in since last session. met Assessment Patient Response to Treatment Excellent Rehab Potential Excellent Impairments Identified Voice Assessment of Improvement Pt is currently receiving myofacial release therapy through PT and reports that by the end of her PT sessions, her voice improves to normal . She is also participating in [employer] a therapeutic singing group therapy program designed for adults with communication challenges. She enjoyes [employer] very much and attends weekly. Finally, she is incorporating vocal adduction exercises 3-4x/week to address voccal fold weakness. All current goals are met at this time. Pt is scheduled to see her oncologist for follow up soon. I recommended that pt follow up with Dr. Rodriguez for stroboscopy and reevaluation of vocal fold function. Recommendedtha, if indicated the use of VF filler with anterior gap, may aid in further reduction of ongoingbreathy quality of pt's voice. Reviewed with Patient Goals,Progress Being Made,Home Exercise Program Patient/Caregiver Understanding Excellent Plan Amount of Therapy Recommended 1-2 Months Comment Need referral from Dr. Ramirez after new strob appt Frequency of Treatment Once a Week Length of Session 45 Minutes Additional Areas of Treatment Reassessment of VF function with Dr. Yan Provided Patient/Caregiver Instruction Home Exercise Program,Plan of Care Comment Need new St appt for f/u x1 Therapy Recommendations Recommended Exercises/ Activities Suggested Referral ENT WETLAND SCIENTIST Voice Resonance Evaluation Start: 04/25/22 11:19 Freq: Status: Active Protocol: Document 04/25/22 11:19 K (Rec: 04/25/22 12:00 [facility] [id number]) Voice and Resonance Assessment Session Time Visit Start Time 09:30 Visit Stop Time 10:30 Total Visit Minutes 60 Visit Information Visit Number 1 Plan of Care Dates 04/25/22-07/24/22 Next Note Type Next Note Type Treatment Note Referral Referring Physician Dr Ramirez, ENT Reason for Referral dysphonia Setting Setting Outpatient Care Patient History Patient History Pt was seen for a voice evaluation 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 She subsequently underwent radiation treatment (28 treatments) from December [address] Ramirez recently evaluated the pt's vocal folds following her treatment. He observed to left vocal fold to have scar tissue, moderately decreased mucosal wave and moderately to severely decreased glottic closure. Pt presented with a significantly breathy/aphonic vocal quality with some phonation. She is seeking vocal therapy to get her voice back to normal and be able to sing again. Educational Status Education Level College Oral Motor Assessment Source: [employer] ([employer]ODRIGUE[employer]). Oral-Motor Eval Completed No Oral-Motor Assessment Informal observation indicated structures and function to be WNL Subjective Subjective Pt is a pleasant woman who was well prepared with information related to her surgery - Laryngeal Performance Maximum Phonation Time MPT Norms: Women (15-25) Men (25-35) Loudness (50-60 dB); Speaking Rate: Oral Reading of Sentences (190 Words Per Minute); Oral Reading of Paragraphs (160-170 WPM); Speaking Rate in Conversation (150-250 WPM) Maximum Phonation Time 11.5 Maximum Phonation Time Reduced Jitter/Shimmer Norms: Jitter (Less than or equal to 1.040% - Frequency) Norms: Shimmer (Less than or equal to 3.810% - Amplitude) Jitter 7.79 Shimmer 13.12 Pitch Lawson Pitch Lawson Pitch Breaks,Reduced Range, Cessation of Voicing Muscle Tension Assessment Muscle Tension Assessment Neck,Shoulders Muscle Tension Assessment Comments Pt noted that her neck was stiffer in the front re: radiation tx Tongue Base Tension Tongue Base Tension w/ Voicing No Tongue Base Tension at Rest No Breath Support Breath Support At Rest Abdominal Breath Support Sustained Phonation Abdominal Breath Support Conversation Abdominal Breath Support Conversation Comment Increased respiratory rate re: breathiness Speaks on Room Air Yes Postural Alignment Stance Balanced Voice Pitch Range Norms: Women (100-300 Hz) Men (70-250 Hz) Fundamental Frequency Norms: Women (Mean: 225 Hz; Range: 155-334 Hz) Men ( Mean: 128 Hz; Range: 85-196 Hz) Voice Pitch Normal Voice Loudness Moderately Soft/Quiet Voice Phonatory-based Quality Breathy Fundamental Frequency 191 Hz Paradoxical Vocal Fold Movement No Indications Resonance Nasal Resonance Normal Oral Resonance Normal Other Observations Inadequate Breath Support Therapeutic Techniques Other Tactics Vocal adduction exercises Follow exercises from oncologist for maintaining/ increasing ROM and flexibility of head and neck Vocal glides Findings Findings Moderate-Severe Impairment Voice/Resonance Assessment Assessment Pt presents with moderate to severe dysphaonia characterized by significant breathy vocal quality, reduced loudness and increased respiratory effort when speaking. Vocal adduction exercises as well as pitch change exercises will be utilized to increase vocal fold strength for vocal adduction and vocal fold flexibility. Myofascial release therapy is recommended , initially with physical therapy, and continued/ maintained by pt. Prognosis Rehabilitation Potential Good - Recommendations Treatment Recommended Yes Treatment Frequency/Duration weekly Therapy Recommendations Myofascial release therapy for head/neck area to reduce/ maintaing soft tissue stiffness re: radiation therapy. Recommend PT referral Short Term Goals 1. Pt education of the anatomy/physiology of the laryngeal and neck structures re; pt's surgery and radiation side effects 2. Pt will understand and perform laryngeal exercises as prescribed by ST daily 3. Pt will be referred to PT for myofascial release therapy of head and nck areas affected by Radiation treatments WETLAND SCIENTIST Follow Up weekly as indicated Patient/Caregiver Education Patient/Family Education Described results of evaluation,Patient Understanding,Patient Demonstration,Patient Needs More Info
--- NOTE | 2022-09-19 15:53 | ST.OPDS ---
Visit Care Team Role Provider Type Too Burgos MD Family Provider Physician Primary Care Provider Address: [address] [place] [address], [address], [place], [address] Lobo Ramirez MD Attending Provider Non-Staff Referring Provider Address: [facility] Chloe [address], [address] [employer]WAY WORKER Treatment Note [employer] WORKER Clinical Instructor Line Start: 07/12/22 16:36 Freq: Status: Active Protocol: Document 07/12/22 19:11 LNK (Rec: 07/12/22 19:11 LNK [id number]) Clinical Instructor Signature Clinical Instructor Clinical Instructor Yes [employer] WORK[employer] Treatment Note Start: 05/03/22 13:25 Freq: Status: Active Protocol: Document 09/19/22 15:50 LNK (Rec: 09/19/22 15:53 LNK [id number]) Speech Pathology Treatment Note Setting Treatment Setting Outpatient Care General Information Patient History Pt was initially seen for a voice evaluation 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 She subsequently underwent radiation treatment (28 treatments) from December [address] Ramirez evaluated the pt's vocal folds following her treatment. He observed the left vocal fold to have scar tissue, moderately decreased mucosal wave and moderately to severely decreased glottic closure. Pt presented with a significantly breathy/aphonic vocal quality with some phonation. She is seeking vocal therapy to get her voice back to normal and be able to sing again. Subjective Observations/Patient Presentation Pt initially presented with moderate dysphonia characterized by moderate breathy vocal quality, reduced loudness and some respiratory effort when speaking. Vocal adduction exercises as well as pitch change exercises were recommended be utilized to increase vocal fold strength for vocal adduction and vocal fold flexibility. Myofacial release therapy is recommended , initially with physical therapy, and continued/ maintained by pt. Objective Treatment Activities Pt as not been seen since 08/02. Will discharge at this time Assessment Assessment of Improvement Pt has been receiving myofacial release therapy through PT and reports that by the end of her PT sessions, her voice improves to normal . She is alsp participating in [employer] a therapeutic singing group therapy program designed for adults with communication challenges. She enjoys [employer] very much and attends weekly. Finally, she is incorporating vocal adduction exercises 3-4x/week to address vocal fold weakness . All current goals are met at this time. Pt is scheduled to see her oncologist for follow up soon. I recommended that pt follow up with Dr. Rodriguez for stroboscopy and reevaluation of vocal fold function. Recommended that, if indicated the use of VF filler with anterior gap, may aid in further reduction of ongoing breathy quality of pt' s voice.
== END 2022-09-21 14:43 | disposition home or self-care (01) ==
LOC: SP 10:30
PROVIDERS: Family Provider Internal Medicine; PCP Internal Medicine; Referring Provider Specialist; Visit Provider Specialist
DX: R49.0 Dysphonia (principal)
CPT/HCPCS: 92507; 92520; 92524

== ENCOUNTER 2022-08-27 09:00 | Outpatient (RCR) | payer MEDICARE, BC, SELFPAY ==
--- NOTE | 2022-07-12 16:42 | PT.OIE ---
Current Diagnoses Myalgia, other site (07/12/22) Past Medical History (Last Updated 06/12/22 @ 11:55 by Too Burgos MD) Laryngeal cancer Osteopenia (07/09/11) Visit Care Team Role Provider Type Too Burgos MD Attending Provider Physician Family Provider Primary Care Provider Referring Provider Specialty: Internal Medicine Address: [address] [place] [address], [address], [facility] Email: [email or web address] Physical Therapy Initial Evaluation PT-OP-A Visit Information Start: 07/11/22 17:25 Freq: Status: Active Protocol: Document 07/12/22 08:17 SAK (Rec: 07/12/22 09:03 SAK [id number]) Out-Patient Physical Therapy Visit Information Visit Information Visit Type Initial Evaluation Visit Start Time 08:18 Visit Stop Time 09:03 Total Visit Minutes 45 Visit Number 1 Evaluation Information Evaluation Date 07/12/22 PT-OP-B Current Condition Start: 07/11/22 17:25 Freq: Status: Active Protocol: Document 07/12/22 08:17 SAK (Rec: 07/12/22 09:03 SAK [id number]) Current Condition History of Current Condition Onset Date 11/06/21 Current Complaints raspy voice and mucus in throat, neck tightness History of Current Condition 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 Seeing speech therapy who recommended PT for myofascial work. Prior Treatments and Tests see above Future Testing and Treatments Planned Saw Dr. Ramirez, ENT in [place] April 19, 2022; states tumor is gone. Supposed to see doctor this month Dr. West (oncologist ENT). Treatment Goals Patient/Caregiver Goals improve neck mobility, decrease voice hoarseness Prior Functional Status Baseline Function- ADL's Independent Baseline Function- Mobility Independent Baseline Function- Other able to turn neck fully, no restrictions Current Functional Impairments (Reported) Functional Limitations- ADL's unable to turn neck fully PT-OP-J Posture/Palpation/Skin Start: 07/11/22 17:25 Freq: Status: Active Protocol: Document 07/12/22 08:17 SAK (Rec: 07/12/22 09:03 SAK [id number]) Posture Evaluation Position Sitting Head/C-Spine Posture Forward Head T-Spine Posture Increased Kyphosis Shoulder Posture (L) Rounded,(R) Rounded Scapula Posture (L) Protracted,(R) Protracted Arm Posture (L) Internally Rotated,(R) Internally Rotated Palpation Assessment Location neck Palpation Findings Soft Tissue Tightness,Muscle Guarding PT-OP-K Range of Motion Start: 07/11/22 17:25 Freq: Status: Active Protocol: Document 07/12/22 08:17 SAK (Rec: 07/12/22 09:03 [facility] [id number]) Cervical Spine Range of Motion Cervical Spine Active Flexion 62 Extension 43 Rotation Left 58 Rotation Right 32 Lateral Flexion Left 22 Lateral Flexion Right 19 ROM Limitations Soft Tissue Tightness Shoulder Goniometric Range of Motion Shoulder wei Shoulder ROM WFL Yes PT-OP-Q Treatments Start: 07/11/22 17:25 Freq: Status: Active Protocol: Document 07/12/22 08:17 SAK (Rec: 07/17/22 16:40 SAK [id number]) Self-Care/Home Management Treatment Education Patient Education Home Exercise Program,Posture Other Education issued written handout PT-OP-T Assessment and Plan Start: 07/11/22 17:25 Freq: Status: Active Protocol: Document 07/12/22 08:17 SAK (Rec: 07/12/22 09:03 [facility] [id number]) Physical Therapy Assessment Rehab Potential Rehabilitation Potential Good Evaluation Complexity Number of Personal Factors/Comorbidities 1-2 Number of Body Systems Impaired 3 Clinical Presentation at Evaluation Evolving Impairments Impairments Integument,ROM,Soft Tissue Mobility Other Impairments hoarseness of voice Goals Three Impairment postural dysfunction Impairment forward head, rounded shoulders Short Term Goal (STG) instruct in neutral neck posture with postural correction exercises STG Duration 08/12/22 Restaurant Expeditor Goal (LTG) Patient to demonstrate improved neck posture toward neutral to promote improved neck and voice function LTG Duration 10/12/22 Two Impairment soft tissue tightness anterior neck Impairment compression of vocal cords with hoarseness of voice Short Term Goal (STG) initiate MLD to anterior neck soft tissues STG Duration 08/12/22 Restaurant Expeditor Goal (LTG) soft tissue mobility anterior neck WNL with patient exhibiting less hoarseness of her voice LTG Duration 10/12/22 One Impairment decreased neck range of motion Short Term Goal (STG) Patient to be independent and compliant with HEP for ROM of neck to support therapy activities STG Duration 08/12/22 Restaurant Expeditor Goal (LTG) Patient to demonstrate full active ROM of her neck to allow her to turn her neck for safe driving LTG Duration 10/12/22 Assessment Summary Assessment Patient presents to PT with function-limiting soft tissue tightness anterior neck and with decreased cervical ROM and c/o hoarseness of her voice. Her speech therapist recommended PT for MFR. Feel she would benefit from MFR, MLD, and therapeutic exercise to improve her ROM and function of her neck and decrease compression of vocal cords which could be causing her hoarseness Physical Therapy Plan Frequency and Duration Frequency of Treatment 2x/Week Duration of treatment (weeks) 12 Plan of Care Start Date 07/12/22 Plan of Care End Date 10/12/22 Therapeutic Interventions Therapeutic Interventions Home Exercise Program,Manual Therapy,Patient/Caregiver Education,Self-Care/Home Management,Soft Tissue Mobilization,Taping, Therapeutic Activities, Therapeutic Exercises Next Visit Focus/Plan Next Note Type Treatment Note Next Visit Plan Review HEP, initiate MLD and MFR techniques.
--- NOTE | 2022-07-12 16:43 | PT.OPPOC ---
Physical, Occupational & Speech Therapy At [facility] Current Diagnoses Myalgia, other site (07/12/22) Visit Care Team Role Provider Type Too Burgos MD Attending Provider Physician Family Provider Primary Care Provider Referring Provider Specialty: Internal Medicine Address: [address] [place] [address], [id number] Email: [email or web address] Plan Of Care PT-OP-T Assessment and Plan Start: 07/11/22 17:25 Freq: Status: Active Protocol: Document 07/12/22 08:17 AYESHA (Rec: 07/12/22 09:03 SAK [id number]) Physical Therapy Assessment Rehab Potential Rehabilitation Potential Good Evaluation Complexity Number of Personal Factors/Comorbidities 1-2 Number of Body Systems Impaired 3 Clinical Presentation at Evaluation Evolving Impairments Impairments Integument,ROM,Soft Tissue Mobility Other Impairments hoarseness of voice Goals Three Impairment postural dysfunction Impairment forward head, rounded shoulders Short Term Goal (STG) instruct in neutral neck posture with postural correction exercises STG Duration 08/12/22 Jail Goal (LTG) Patient to demonstrate improved neck posture toward neutral to promote improved neck and voice function LTG Duration 10/12/22 Two Impairment soft tissue tightness anterior neck Impairment compression of vocal cords with hoarseness of voice Short Term Goal (STG) initiate MLD to anterior neck soft tissues STG Duration 08/12/22 Jail Goal (LTG) soft tissue mobility anterior neck WNL with patient exhibiting less hoarseness of her voice LTG Duration 10/12/22 One Impairment decreased neck range of motion Short Term Goal (STG) Patient to be independent and compliant with HEP for ROM of neck to support therapy activities STG Duration 08/12/22 Motorcycle Police Officer Goal (LTG) Patient to demonstrate full active ROM of her neck to allow her to turn her neck for safe driving LTG Duration 10/12/22 Assessment Summary Assessment Patient presents to PT with function-limiting soft tissue tightness anterior neck and with decreased cervical ROM and c/o hoarseness of her voice. Her speech therapist recommended PT for MFR. Feel she would benefit from MFR, MLD, and therapeutic exercise to improve her ROM and function of her neck and decrease compression of vocal cords which could be causing her hoarseness Physical Therapy Plan Frequency and Duration Frequency of Treatment 2x/Week Duration of treatment (weeks) 12 Plan of Care Start Date 07/12/22 Plan of Care End Date 10/12/22 Therapeutic Interventions Therapeutic Interventions Home Exercise Program,Manual Therapy,Patient/Caregiver Education,Self-Care/Home Management,Soft Tissue Mobilization,Taping, Therapeutic Activities, Therapeutic Exercises Next Visit Focus/Plan Next Note Type Treatment Note Next Visit Plan Review HEP, initiate MLD and MFR techniques. Plan of Care Dates Plan of Care Start Date 07/12/22 Plan of Care End Date 10/12/22 Electronically Signed by: Krystin Martino, PT 07/17/22 3355 If you are in agreement with this Plan of Care, please return a signed and dated copy. I have reviewed this Plan of Care and certify that the skilled therapy services above are required to meet the patient?s needs. Physician Signature Date Printed Name and Credentials Clinical Instructor Signature Printed Name and Credentials
--- NOTE | 2022-07-18 12:13 | PT.OTN ---
Current Diagnoses Myalgia, other site (07/18/22) Physical Therapy Treatment Note PT-OP-A Visit Information Start: 07/11/22 17:25 Freq: Status: Active Protocol: Document 07/18/22 11:19 SAK (Rec: 07/18/22 12:13 [facility] [id number]) Out-Patient Physical Therapy Visit Information Visit Information Visit Type Treatment Note Visit Start Time 11:19 Visit Stop Time 12:04 Total Visit Minutes 45 Visit Number 2 Evaluation Information Evaluation Date 07/12/22 PT-OP-B Current Condition Start: 07/11/22 17:25 Freq: Status: Active Protocol: Document 07/18/22 11:19 SAK (Rec: 07/18/22 12:13 [facility] [id number]) Current Condition History of Current Condition Onset Date 11/06/21 Current Complaints raspy voice and mucus in throat, neck tightness History of Current Condition 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 Seeing speech therapy who recommended PT for myofascial work. Prior Treatments and Tests see above Future Testing and Treatments Planned Saw Dr. Ramirez, ENT in [place] April 19, 2022; states tumor is gone. Supposed to see doctor this month Dr. West (oncologist ENT). Treatment Goals Patient/Caregiver Goals improve neck mobility, decrease voice hoarseness Prior Functional Status Baseline Function- ADL's Independent Baseline Function- Mobility Independent Baseline Function- Other able to turn neck fully, no restrictions PT-OP-J Posture/Palpation/Skin Start: 07/11/22 17:25 Freq: Status: Active Protocol: Document 07/12/22 08:17 [facility] (Rec: 07/12/22 09:03 [facility] [id number]) Posture Evaluation Position Sitting Head/C-Spine Posture Forward Head T-Spine Posture Increased Kyphosis Shoulder Posture (L) Rounded,(R) Rounded Scapula Posture (L) Protracted,(R) Protracted Arm Posture (L) Internally Rotated,(R) Internally Rotated Palpation Assessment Location neck Palpation Findings Soft Tissue Tightness,Muscle Guarding PT-OP-K Range of Motion Start: 07/11/22 17:25 Freq: Status: Active Protocol: Document 07/12/22 08:17 SAK (Rec: 07/12/22 09:03 [facility] [id number]) Cervical Spine Range of Motion Cervical Spine Active Flexion 62 Extension 43 Rotation Left 58 Rotation Right 32 Lateral Flexion Left 22 Lateral Flexion Right 19 ROM Limitations Soft Tissue Tightness Shoulder Goniometric Range of Motion Shoulder wei Shoulder ROM WFL Yes PT-OP-Q Treatments Start: 07/11/22 17:25 Freq: Status: Active Protocol: Document 07/18/22 11:19 [facility] (Rec: 07/18/22 12:13 [facility] [id number]) Therapeutic Exercises Sitting Exercises deep breathing Reps/Minutes 5x trunk rot Reps/Minutes 5x shoulder rolls Sitting Exercise Name wei and unil Reps/Minutes 5 neck AROM Sitting Exercise Name rot, SB, flex/ext Reps/Minutes 5x ea Manual Therapy Treatment Soft Tissue Mobilization MFR Body Location ant, lat neck, UT, SCM Scalenes Mobilization Type Manual Lymphatic Drainage, Myofascial Release Body Position Hooklying Self-Care/Home Management Treatment Education Patient Education Home Exercise Program,Posture PT-OP-T Assessment and Plan Start: 07/11/22 17:25 Freq: Status: Active Protocol: Document 07/18/22 11:19 [facility] (Rec: 07/18/22 12:13 [facility] [id number]) Physical Therapy Assessment Goals Three Impairment postural dysfunction Impairment forward head, rounded shoulders Short Term Goal (STG) instruct in neutral neck posture with postural correction exercises STG Duration 08/12/22 Air Traffic Instructor Goal (LTG) Patient to demonstrate improved neck posture toward neutral to promote improved neck and voice function LTG Duration 10/12/22 Two Impairment soft tissue tightness anterior neck Impairment compression of vocal cords with hoarseness of voice Short Term Goal (STG) initiate MLD to anterior neck soft tissues STG Duration 08/12/22 Long-Term Goal (LTG) soft tissue mobility anterior neck WNL with patient exhibiting less hoarseness of her voice LTG Duration 10/12/22 One Impairment decreased neck range of motion Short Term Goal (STG) Patient to be independent and compliant with HEP for ROM of neck to support therapy activities STG Duration 08/12/22 Air Traffic Instructor Goal (LTG) Patient to demonstrate full active ROM of her neck to allow her to turn her neck for safe driving LTG Duration 10/12/22 Assessment Summary Assessment Reported improved mobility and voice after doing stretches and massage as instructed. Good tolerance for ther ex and manual techniques to neck. Physical Therapy Plan Frequency and Duration Frequency of Treatment 2x/Week Duration of treatment (weeks) 12 Plan of Care Start Date 07/12/22 Plan of Care End Date 10/12/22 Therapeutic Interventions Therapeutic Interventions Home Exercise Program,Manual Therapy,Patient/Caregiver Education,Self-Care/Home Management,Soft Tissue Mobilization,Taping, Therapeutic Activities, Therapeutic Exercises Next Visit Focus/Plan Next Note Type Treatment Note Next Visit Plan Continue ther ex, issue updated HO for HEP, continue manual techniques to increase mobility and ROM
--- NOTE | 2022-07-25 12:09 | PT.OTN ---
Current Diagnoses Myalgia, other site (07/25/22) Physical Therapy Treatment Note PT-OP-A Visit Information Start: 07/11/22 17:25 Freq: Status: Active Protocol: Document 07/25/22 11:18 SAK (Rec: 07/25/22 12:09 [facility] [id number]) Out-Patient Physical Therapy Visit Information Visit Information Visit Type Treatment Note Visit Start Time 11:18 Visit Stop Time 12:00 Total Visit Minutes 43 Visit Number 3 Evaluation Information Evaluation Date 07/12/22 PT-OP-B Current Condition Start: 07/11/22 17:25 Freq: Status: Active Protocol: Document 07/25/22 11:18 SAK (Rec: 07/25/22 12:09 [facility] [id number]) Current Condition History of Current Condition Onset Date 11/06/21 Current Complaints raspy voice and mucus in throat, neck tightness History of Current Condition 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 Seeing speech therapy who recommended PT for myofascial work. Prior Treatments and Tests see above Future Testing and Treatments Planned Saw Dr. Ramirez, ENT in [place] April 19, 2022; states tumor is gone. Supposed to see doctor this month Dr. West (oncologist ENT). Treatment Goals Patient/Caregiver Goals improve neck mobility, decrease voice hoarseness Prior Functional Status Baseline Function- ADL's Independent Baseline Function- Mobility Independent Baseline Function- Other able to turn neck fully, no restrictions PT-OP-J Posture/Palpation/Skin Start: 07/11/22 17:25 Freq: Status: Active Protocol: Document 07/12/22 08:17 SAK (Rec: 07/12/22 09:03 [facility] [id number]) Posture Evaluation Position Sitting Head/C-Spine Posture Forward Head T-Spine Posture Increased Kyphosis Shoulder Posture (L) Rounded,(R) Rounded Scapula Posture (L) Protracted,(R) Protracted Arm Posture (L) Internally Rotated,(R) Internally Rotated Palpation Assessment Location neck Palpation Findings Soft Tissue Tightness,Muscle Guarding PT-OP-K Range of Motion Start: 07/11/22 17:25 Freq: Status: Active Protocol: Document 07/12/22 08:17 SAK (Rec: 07/12/22 09:03 [facility] [id number]) Cervical Spine Range of Motion Cervical Spine Active Flexion 62 Extension 43 Rotation Left 58 Rotation Right 32 Lateral Flexion Left 22 Lateral Flexion Right 19 ROM Limitations Soft Tissue Tightness Shoulder Goniometric Range of Motion Shoulder wei Shoulder ROM WFL Yes PT-OP-Q Treatments Start: 07/11/22 17:25 Freq: Status: Active Protocol: Document 07/25/22 11:18 [facility] (Rec: 07/25/22 12:09 [facility] [id number]) Therapeutic Exercises Sidelying Exercises open book Reps/Minutes 5x Sitting Exercises skin stretch c/s ext Reps/Minutes 2x30 deep breathing Reps/Minutes 5x trunk rot Reps/Minutes 5x neck AROM Sitting Exercise Name rot, SB, flex/ext Reps/Minutes 5x ea Comments end range stretchwith deep breathing Manual Therapy Treatment Soft Tissue Mobilization MFR Body Location ant, lat neck, UT, SCM Scalenes Mobilization Type Manual Lymphatic Drainage, Myofascial Release Body Position Hooklying PT-OP-T Assessment and Plan Start: 07/11/22 17:25 Freq: Status: Active Protocol: Document 07/25/22 11:18 [facility] (Rec: 07/25/22 12:09 [facility] [id number]) Physical Therapy Assessment Impairments Impairments Integument,ROM,Soft Tissue Mobility Other Impairments hoarseness of voice Goals Three Impairment postural dysfunction Impairment forward head, rounded shoulders Short Term Goal (STG) instruct in neutral neck posture with postural correction exercises STG Duration 08/12/22 Usp Goal (LTG) Patient to demonstrate improved neck posture toward neutral to promote improved neck and voice function LTG Duration 10/12/22 Two Impairment soft tissue tightness anterior neck Impairment compression of vocal cords with hoarseness of voice Short Term Goal (STG) initiate MLD to anterior neck soft tissues STG Duration 08/12/22 Usp Goal (LTG) soft tissue mobility anterior neck WNL with patient exhibiting less hoarseness of her voice LTG Duration 10/12/22 One Impairment decreased neck range of motion Short Term Goal (STG) Patient to be independent and compliant with HEP for ROM of neck to support therapy activities STG Duration 08/12/22 Usp Goal (LTG) Patient to demonstrate full active ROM of her neck to allow her to turn her neck for safe driving LTG Duration 10/12/22 Assessment Summary Assessment Good tolerance for ther ex with improved ROM. Patient not doing anterior skin drag stretch with cervical extension, reviewed and patient demonstrated improved understanding and performance. Physical Therapy Plan Frequency and Duration Frequency of Treatment 2x/Week Duration of treatment (weeks) 12 Plan of Care Start Date 07/12/22 Plan of Care End Date 10/12/22 Therapeutic Interventions Therapeutic Interventions Home Exercise Program,Manual Therapy,Patient/Caregiver Education,Self-Care/Home Management,Soft Tissue Mobilization,Taping, Therapeutic Activities, Therapeutic Exercises Next Visit Focus/Plan Next Note Type Treatment Note Next Visit Plan Continue ther ex, issue updated HO for HEP, continue manual techniques to increase mobility and ROM
--- NOTE | 2022-08-02 09:00 | PT.OTN ---
Current Diagnoses Myalgia, other site (08/02/22) Physical Therapy Treatment Note PT-OP-A Visit Information Start: 07/11/22 17:25 Freq: Status: Active Protocol: Document 08/02/22 08:12 SAK (Rec: 08/02/22 09:00 [facility] [id number]) Out-Patient Physical Therapy Visit Information Visit Information Visit Type Treatment Note Visit Start Time 08:15 Visit Stop Time 08:57 Total Visit Minutes 42 Visit Number 4 Evaluation Information Evaluation Date 07/12/22 PT-OP-B Current Condition Start: 07/11/22 17:25 Freq: Status: Active Protocol: Document 08/02/22 08:12 SAK (Rec: 08/02/22 09:00 [facility] [id number]) Current Condition History of Current Condition Onset Date 11/06/21 Current Complaints raspy voice and mucus in throat, neck tightness History of Current Condition 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 Seeing speech therapy who recommended PT for myofascial work. Prior Treatments and Tests see above Future Testing and Treatments Planned Saw Dr. Ramirez, ENT in [place] April 19, 2022; states tumor is gone. Supposed to see doctor this month Dr. West (oncologist ENT). Treatment Goals Patient/Caregiver Goals improve neck mobility, decrease voice hoarseness PT-OP-C Subjective Start: 07/11/22 17:25 Freq: Status: Active Protocol: Document 08/02/22 08:12 SAK (Rec: 08/02/22 09:00 [facility] [id number]) OP-PT Subjective Patient Comments Patient Comments 6 month check up next week; . Patient Reported Progress Improving PT-OP-J Posture/Palpation/Skin Start: 07/11/22 17:25 Freq: Status: Active Protocol: Document 07/12/22 08:17 SAK (Rec: 07/12/22 09:03 [facility] [id number]) Posture Evaluation Position Sitting Head/C-Spine Posture Forward Head T-Spine Posture Increased Kyphosis Shoulder Posture (L) Rounded,(R) Rounded Scapula Posture (L) Protracted,(R) Protracted Arm Posture (L) Internally Rotated,(R) Internally Rotated Palpation Assessment Location neck Palpation Findings Soft Tissue Tightness,Muscle Guarding PT-OP-K Range of Motion Start: 07/11/22 17:25 Freq: Status: Active Protocol: Document 08/02/22 08:12 SAK (Rec: 08/02/22 09:00 [facility] [id number]) Cervical Spine Range of Motion Cervical Spine Active Flexion 62 Extension 45 Rotation Left 62 Rotation Right 44 Lateral Flexion Left 35 Lateral Flexion Right 37 ROM Limitations Soft Tissue Tightness Comments ROM improvement PT-OP-Q Treatments Start: 07/11/22 17:25 Freq: Status: Active Protocol: Document 08/02/22 08:12 SAK (Rec: 08/02/22 09:00 [facility] [id number]) Therapeutic Exercises Sidelying Exercises open book Reps/Minutes 5x Sitting Exercises skin stretch c/s ext Reps/Minutes 2x30 Manual Therapy Treatment Soft Tissue Mobilization MFR Body Location ant, lat neck, UT, SCM Scalenes Mobilization Type Manual Lymphatic Drainage, Myofascial Release Body Position Hooklying PT-OP-T Assessment and Plan Start: 07/11/22 17:25 Freq: Status: Active Protocol: Document 08/02/22 08:12 SAK (Rec: 08/02/22 09:00 [facility] [id number]) Physical Therapy Assessment Impairments Impairments Integument,ROM,Soft Tissue Mobility Other Impairments hoarseness of voice Goals Three Impairment postural dysfunction Impairment forward head, rounded shoulders Short Term Goal (STG) instruct in neutral neck posture with postural correction exercises STG Duration 08/12/22 Hair Boiler Goal (LTG) Patient to demonstrate improved neck posture toward neutral to promote improved neck and voice function LTG Duration 10/12/22 Two Impairment soft tissue tightness anterior neck Impairment compression of vocal cords with hoarseness of voice Short Term Goal (STG) initiate MLD to anterior neck soft tissues STG Duration 08/12/22 Hair Boiler Goal (LTG) soft tissue mobility anterior neck WNL with patient exhibiting less hoarseness of her voice LTG Duration 10/12/22 One Impairment decreased neck range of motion Short Term Goal (STG) Patient to be independent and compliant with HEP for ROM of neck to support therapy activities STG Duration 08/12/22 Hair Boiler Goal (LTG) Patient to demonstrate full active ROM of her neck to allow her to turn her neck for safe driving LTG Duration 10/12/22 Assessment Summary Assessment Good improvement in cervical ROM, patient instructed to add diagonal neck stretch with skin drag; good understanding and complianc with HEP. Physical Therapy Plan Frequency and Duration Frequency of Treatment 2x/Week Duration of treatment (weeks) 12 Plan of Care Start Date 07/12/22 Plan of Care End Date 10/12/22 Therapeutic Interventions Therapeutic Interventions Home Exercise Program,Manual Therapy,Patient/Caregiver Education,Self-Care/Home Management,Soft Tissue Mobilization,Taping, Therapeutic Activities, Therapeutic Exercises Next Visit Focus/Plan Next Note Type Treatment Note Next Visit Plan Continue ther ex, issue updated HO for HEP, continue manual techniques to increase mobility and ROM
--- NOTE | 2022-08-08 12:11 | PT.OTN ---
Current Diagnoses Myalgia, other site (08/08/22) Physical Therapy Treatment Note PT-OP-A Visit Information Start: 07/11/22 17:25 Freq: Status: Active Protocol: Document 08/08/22 11:21 SAK (Rec: 08/08/22 12:10 [facility] [id number]) Out-Patient Physical Therapy Visit Information Visit Information Visit Type Treatment Note Visit Start Time 11:20 Visit Stop Time 12:00 Total Visit Minutes 40 Visit Number 5 Evaluation Information Evaluation Date 07/12/22 PT-OP-B Current Condition Start: 07/11/22 17:25 Freq: Status: Active Protocol: Document 08/02/22 08:12 SAK (Rec: 08/02/22 09:00 [facility] [id number]) Current Condition History of Current Condition Onset Date 11/06/21 Current Complaints raspy voice and mucus in throat, neck tightness History of Current Condition 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 Seeing speech therapy who recommended PT for myofascial work. Prior Treatments and Tests see above Future Testing and Treatments Planned Saw Dr. Ramirez, ENT in [place] April 19, 2022; states tumor is gone. Supposed to see doctor this month Dr. West (oncologist ENT). Treatment Goals Patient/Caregiver Goals improve neck mobility, decrease voice hoarseness PT-OP-C Subjective Start: 07/11/22 17:25 Freq: Status: Active Protocol: Document 08/08/22 11:21 SAK (Rec: 08/08/22 12:10 [facility] [id number]) OP-PT Subjective Patient Comments Patient Comments Saw doctor, good news, goes back in 6 months. States doctor pleased PT doing MLD. PT-OP-J Posture/Palpation/Skin Start: 07/11/22 17:25 Freq: Status: Active Protocol: Document 07/12/22 08:17 SAK (Rec: 07/12/22 09:03 [facility] [id number]) Posture Evaluation Position Sitting Head/C-Spine Posture Forward Head T-Spine Posture Increased Kyphosis Shoulder Posture (L) Rounded,(R) Rounded Scapula Posture (L) Protracted,(R) Protracted Arm Posture (L) Internally Rotated,(R) Internally Rotated Palpation Assessment Location neck Palpation Findings Soft Tissue Tightness,Muscle Guarding PT-OP-K Range of Motion Start: 07/11/22 17:25 Freq: Status: Active Protocol: Document 08/02/22 08:12 [facility] (Rec: 08/02/22 09:00 [facility] [id number]) Cervical Spine Range of Motion Cervical Spine Active Flexion 62 Extension 45 Rotation Left 62 Rotation Right 44 Lateral Flexion Left 35 Lateral Flexion Right 37 ROM Limitations Soft Tissue Tightness Comments ROM improvement PT-OP-Q Treatments Start: 07/11/22 17:25 Freq: Status: Active Protocol: Document 08/08/22 11:21 [facility] (Rec: 08/08/22 12:10 [facility] [id number]) Manual Therapy Treatment Soft Tissue Mobilization MFR Body Location ant, lat neck, UT, SCM Scalenes Mobilization Type Manual Lymphatic Drainage, Myofascial Release Body Position Hooklying Self-Care/Home Management Treatment Education Other Education Reviewed [facility] video for neck lymphedema, PT cues and guidence during video, given info for use at home. Discussed compression for neck , given info on compression garment. PT-OP-T Assessment and Plan Start: 07/11/22 17:25 Freq: Status: Active Protocol: Document 08/08/22 11:21 [facility] (Rec: 08/08/22 12:10 [facility] [id number]) Physical Therapy Assessment Impairments Impairments Integument,ROM,Soft Tissue Mobility Other Impairments hoarseness of voice Goals Three Impairment postural dysfunction Impairment forward head, rounded shoulders Short Term Goal (STG) instruct in neutral neck posture with postural correction exercises STG Duration goal met Assisted Goal (LTG) Patient to demonstrate improved neck posture toward neutral to promote improved neck and voice function LTG Duration 10/12/22 Two Impairment soft tissue tightness anterior neck Impairment compression of vocal cords with hoarseness of voice Short Term Goal (STG) initiate MLD to anterior neck soft tissues STG Duration goal met Orthopedic Rn Goal (LTG) soft tissue mobility anterior neck WNL with patient exhibiting less hoarseness of her voice LTG Duration 10/12/22 One Impairment decreased neck range of motion Short Term Goal (STG) Patient to be independent and compliant with HEP for ROM of neck to support therapy activities STG Duration goal met Orthopedic Rn Goal (LTG) Patient to demonstrate full active ROM of her neck to allow her to turn her neck for safe driving LTG Duration 10/12/22 Progress Towards Goals Progress Towards Goals Progressing Toward Goals Assessment Summary Assessment neck swelling improves with MLD, discussed benefits of neck compression and patient receptive and given information. Patient demonstrated good understanding of self-massage with useof video and was given information for use at home. Physical Therapy Plan Frequency and Duration Frequency of Treatment 2x/Week Duration of treatment (weeks) 12 Plan of Care Start Date 07/12/22 Plan of Care End Date 10/12/22 Therapeutic Interventions Therapeutic Interventions Home Exercise Program,Manual Therapy,Patient/Caregiver Education,Self-Care/Home Management,Soft Tissue Mobilization,Taping, Therapeutic Activities, Therapeutic Exercises Next Visit Focus/Plan Next Note Type Treatment Note Next Visit Plan Follow-up appointment, check fit of compression garment, assure independence with HEP, MLD, postural correction. Determine need for further PT
--- NOTE | 2022-08-27 09:43 | PT.OTN ---
Current Diagnoses Myalgia, other site (08/27/22) Physical Therapy Treatment Note PT-OP-A Visit Information Start: 07/11/22 17:25 Freq: Status: Active Protocol: Document 08/27/22 09:[address] [facility] (Rec: 08/27/22 09:[address] [facility] [id number]) Out-Patient Physical Therapy Visit Information Visit Information Visit Type Treatment Note Visit Start Time 09:00 Visit Stop Time 09:40 Total Visit Minutes 40 Visit Number 6 PT-OP-B Current Condition Start: 07/11/22 17:25 Freq: Status: Active Protocol: Document 08/27/22 09:[address] [facility] (Rec: 08/27/22 09:[address] [facility] [id number]) Current Condition History of Current Condition Onset Date 11/06/21 Current Complaints raspy voice and mucus in throat, neck tightness History of Current Condition 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 Seeing speech therapy who recommended PT for myofascial work. Prior Treatments and Tests see above Future Testing and Treatments Planned Saw Dr. Ramirez, ENT in [place] April 19, 2022; states tumor is gone. Supposed to see doctor this month Dr. West (oncologist ENT). PT-OP-C Subjective Start: 07/11/22 17:25 Freq: Status: Active Protocol: Document 08/27/22 09:[address] [facility] (Rec: 08/27/22 09:[address] [facility] [id number]) OP-PT Subjective Patient Comments Patient Comments States throat feels better, less mucus, as day progresses it gets to be pretty good. [employer] has ended, then goes back in September. PT-OP-J Posture/Palpation/Skin Start: 07/11/22 17:25 Freq: Status: Active Protocol: Document 07/12/22 08:17 SAK (Rec: 07/12/22 09:[address] [facility] [id number]) Posture Evaluation Position Sitting Head/C-Spine Posture Forward Head T-Spine Posture Increased Kyphosis Shoulder Posture (L) Rounded,(R) Rounded Scapula Posture (L) Protracted,(R) Protracted Arm Posture (L) Internally Rotated,(R) Internally Rotated Palpation Assessment Location neck Palpation Findings Soft Tissue Tightness,Muscle Guarding PT-OP-K Range of Motion Start: 07/11/22 17:25 Freq: Status: Active Protocol: Document 08/27/22 09:[address] [facility] (Rec: 08/27/22 09:[address] [facility] [id number]) Cervical Spine Range of Motion Cervical Spine Active Flexion 65 Extension 45 Rotation Left 62 Rotation Right 60 Lateral Flexion Left 35 Lateral Flexion Right 37 ROM Limitations Soft Tissue Tightness Comments ROM improvement PT-OP-Q Treatments Start: 07/11/22 17:25 Freq: Status: Active Protocol: Document 08/27/22 09:[address] [facility] (Rec: 08/27/22 09:43 SAK [id number]) Therapeutic Exercises Sidelying Exercises open book Reps/Minutes 5x Sitting Exercises neck AROM Sitting Exercise Name rot, SB, flex/ext Reps/Minutes 5x ea Comments end range stretchwith deep breathing Manual Therapy Treatment Soft Tissue Mobilization MFR Body Location ant, lat neck, UT, SCM Scalenes Mobilization Type Manual Lymphatic Drainage, Myofascial Release Body Position Hooklying PT-OP-T Assessment and Plan Start: 07/11/22 17:25 Freq: Status: Active Protocol: Document 08/27/22 09:[address] [facility] (Rec: 08/27/22 09:[address] [facility] [id number]) Physical Therapy Assessment Impairments Impairments Integument,ROM,Soft Tissue Mobility Other Impairments hoarseness of voice Goals Three Impairment postural dysfunction Impairment forward head, rounded shoulders Short Term Goal (STG) instruct in neutral neck posture with postural correction exercises STG Duration goal met [facility] Goal (LTG) Patient to demonstrate improved neck posture toward neutral to promote improved neck and voice function LTG Duration goal met Two Impairment soft tissue tightness anterior neck Impairment compression of vocal cords with hoarseness of voice Short Term Goal (STG) initiate MLD to anterior neck soft tissues STG Duration goal met [employer]ic Goal (LTG) soft tissue mobility anterior neck WNL with patient exhibiting less hoarseness of her voice LTG Duration goal met One Impairment decreased neck range of motion Short Term Goal (STG) Patient to be independent and compliant with HEP for ROM of neck to support therapy activities STG Duration goal met Esc[employer]ator Service Mechanic Goal (LTG) Patient to demonstrate full active ROM of her neck to allow her to turn her neck for safe driving LTG Duration goal met Progress Towards Goals Progress Towards Goals Progressing Toward Goals Assessment Summary Assessment PT goals met, plan discharge from PT today with patient to continue with self-care. Physical Therapy Plan Discharge Physical Therapy Discharge Reasons Goals Met
== END 2022-12-18 15:07 | disposition home or self-care (01) ==
LOC: PHYS 09:00
PROVIDERS: Absent Provider Internal Medicine; Family Provider Internal Medicine; PCP Internal Medicine; Referring Provider Internal Medicine; Visit Provider Internal Medicine
DX: M79.18 Myalgia, other site (principal)
CPT/HCPCS: 97110; 97140; 97162; 97535

== ENCOUNTER → 2024-04-30 09:27 | Outpatient (CLI) | payer MEDICARE, BC, SELFPAY ==
--- NOTE | 2024-04-30 09:32 | DI.RAD.S_ITS ---
PROCEDURE: XR PELVIS 1-2V INDICATIONS: right buttock pain TECHNIQUE: Single frontal view of the pelvis. COMPARISON: None. FINDINGS: Bones: No fractures or dislocations. No suspicious bony lesions. Moderate lumbar spine arthropathy. Soft tissues: There appears to be pneumatosis intestinalis along the descending and sigmoid colon. No suspicious soft tissue calcifications. IMPRESSION: 1. Moderate lumbar spine arthropathy may result in right sided nerve impingement that could cause right buttock pain. Consider MRI of the lumbar spine for evaluation of nerve impingement. 2. No acute skeletal abnormality or significant degeneration in the pelvis to explain buttock pain. 3. 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 Recommend dedicated CT abdomen pelvis with IV contrast to evaluate for enterocolitis. The above findings were instructed to be relayed to Dr. Too Burgos by way of the call center at 1:01 p.m. On 04/30/2024 with instructions to reach back with any additional questions. Dictated by: Van Higginbotham M.D. on 04/30/2024 at 12:55 Approved by: Van Higginbotham M.D. on 04/30/2024 at 13:03
== END ==
PROVIDERS: Family Provider Internal Medicine; PCP Internal Medicine; Referring Provider Internal Medicine; Visit Provider Internal Medicine
DX: M47.816 Spondylosis without myelopathy or radiculopathy, lumbar region (principal); M79.18 Myalgia, other site
CPT/HCPCS: 72170

== ENCOUNTER → 2024-05-04 15:19 | Outpatient (CLI) | payer MEDICARE, BC, SELFPAY ==
--- NOTE | 2024-05-04 15:22 | DI.RAD.S_ITS ---
PROCEDURE: XR ABDOMEN MIN 2V INDICATIONS: abnl pelvic xray TECHNIQUE: 2 views of the abdomen were acquired. COMPARISON: [facility], , XR PELVIS 1-2V, 04/30/2024, 9:38. FINDINGS: Surgical changes and devices: None. Bowel: No pneumoperitoneum. The bowel gas pattern is nonobstructive. Moderate amount of stool in the colon and rectum. Soft tissues: No masses; visualized solid organ contours appear normal in size. No suspicious abdominal calcifications. Bones: No suspicious bony abnormalities. IMPRESSION: Non-obstructive bowel gas pattern. Dictated by: Colleen Paul MD, PhD on 05/05/2024 at 10:20 Approved by: Colleen Paul MD, PhD on 05/05/2024 at 10:42
== END ==
PROVIDERS: Family Provider Internal Medicine; PCP Internal Medicine; Referring Provider Internal Medicine; Visit Provider Internal Medicine
DX: J18.9 Pneumonia, unspecified organism (principal); K52.9 Noninfective gastroenteritis and colitis, unspecified
CPT/HCPCS: 74019